=== PATIENT | female | born 1970 | race African-American/Black ===

== ENCOUNTER 2020-04-21 22:22 | Emergency (ER) | payer OTHER ==
[~2020-04-21] VITALS: Ht 177.8 cm; Wt 111.1 kg
[2020-04-22 01:35] VITALS: BP 113/68
== END 2020-04-22 01:36 | disposition home or self-care (01) ==
LOC: ER 22:22
DX: B34.9 Viral infection, unspecified (principal); R19.7 Diarrhea, unspecified; Z88.1 Allergy status to other antibiotic agents; Z20.828 Contact with and (suspected) exposure to other viral communicable diseases